=== PATIENT | female | born 1975 | race Two or more races ===

== ENCOUNTER → 2016-09-25 | Outpatient (CLI) | payer OTHER, BC ==
--- NOTE | 2016-09-25 17:10 | REP ---
Clinical: Cough and left chest pain . Comparison: 10/04/2015 . Technique: PA and lateral. Findings: The mediastinum and cardiac silhouette are normal. The lung yusuf are clear and without acute consolidation, effusion, or pneumothorax. The skeletal structures are intact and normal. Impression: 1. No acute cardiopulmonary process. Signed by Gil Gonzalez MD 09/25/2016 05:01 P
--- NOTE | 2016-09-25 17:12 | REP ---
Clinical: Left rib pain Technique: Multiple views of the right and left hemithoraces. Findings: Frontal view of the chest demonstrates no acute cardiopulmonary process. Multiple views of the right and left hemithoraces demonstrates no obvious acute rib fracture or pathology. Impression: Normal bilateral rib series Signed by Gil Gonzalez MD 09/25/2016 05:03 P
== END ==
LOC: M LRY 16:24
PROVIDERS: ATTEND Nurse Practitioner Family
DX: R05 Cough (principal); R07.81 Pleurodynia

== ENCOUNTER → 2016-12-26 | Outpatient (REF) | payer OTHER, BC | LOC: M SFHCLERA 10:14 | PROVIDERS: ATTEND Nurse Practitioner Family | DX: R11.11 Vomiting without nausea (principal) ==

== ENCOUNTER → 2017-12-10 | Outpatient (REF) | payer OTHER, BC | LOC: M SFHCLERA 12:01 | DX: J02.9 Acute pharyngitis, unspecified (principal) ==

== ENCOUNTER → 2018-02-18 | Outpatient (REF) | payer OTHER, BC | LOC: M SFHCLERA 13:28 | DX: J02.9 Acute pharyngitis, unspecified (principal) ==

== ENCOUNTER → 2018-11-14 | Outpatient (CLI) | payer BC ==
--- NOTE | 2018-11-14 12:19 | REP ---
Chest two views HISTORY: Rhonchi Comparison: 09/25/2016 The lungs are hyperinflated. Minimal peribronchial cuffing is present. The heart is normal in size. The pulmonary vasculature is normal in appearance. The bony structure is intact. IMPRESSION: There is minimal peribronchial cuffing consistent with asthma or bronchitis. Electronically Signed by Jayce Gutierrez MD 11/14/2018 12:10 P
== END ==
LOC: M LRY 11:42
PROVIDERS: ATTEND Nurse Practitioner Family
DX: R09.89 Other specified symptoms and signs involving the circulatory and respiratory systems (principal)

== ENCOUNTER → 2020-04-22 | Outpatient (REF) | payer BC ==
[2020-04-23 15:41] LABS: CREATININE, URINE 74.9 MG/DL; MALB URINE SIEMENS 10.3 MG/L; MAU/CREAT RATIO 13.7 MCG/MG (0.0-30.0)
== END ==
LOC: M LAB REF 11:51
PROVIDERS: ATTEND Nurse Practitioner Family
DX: E10.65 Type 1 diabetes mellitus with hyperglycemia (principal)

== ENCOUNTER → 2021-05-25 | Outpatient (REF) | payer BC ==
[2021-05-25 14:13] LABS: CREATININE, URINE 28.7 MG/DL; MALB URINE SIEMENS 10.5 MG/L; MAU/CREAT RATIO 36.5 MCG/MG (0.0-30.0)
== END ==
LOC: M LAB REF 12:57
PROVIDERS: ATTEND Nurse Practitioner Family
DX: E10.65 Type 1 diabetes mellitus with hyperglycemia (principal)

== ENCOUNTER → 2022-06-21 | Outpatient (REF) | payer OTHER, BC ==
[~2022-06-21] MED LIST: ADME100I; ALBU8.5H; ARNU1INH; ELIQ5TAB; ERGO500029; FARX1TAB3; FERR325T3; LEVO100T5; METF10004; METR-369; OMEP-173; SERT50TA29; STEG15TA; TRAZ-189; TRUL0.5I
[2022-06-22 18:18] LABS: MALB URINE SIEMENS < 5.0 MG/L; MAU/CREAT RATIO 18.5 MCG/MG (0.0-30.0)
== END ==
LOC: M LAB REF 16:58
PROVIDERS: ATTEND Nurse Practitioner Family
DX: E10.65 Type 1 diabetes mellitus with hyperglycemia (principal)

== ENCOUNTER → 2022-08-31 | Outpatient (CLI) | payer OTHER ==
[~2022-08-31] MED LIST changes: -ADME100I; +ADME100I SC; -ALBU8.5H; +ALBU8.5H INH; +AZEL1SPR3; +B-12100010 PO; +BASA100I SC; +BUPR150T12 PO; +ELIQ2.5T PO; -ERGO500029; +ERGO500029 PO; -FERR325T3; +FERR325T3 PO; -LEVO100T5; +LEVO100T5 PO; -METF10004; +METF10004 PO; +OMEP40CA5 PO; +SENO8.6T5 PO; -SERT50TA29; +SERT50TA29 PO; +SIMV40TA20 PO; +SUCR1TAB56 PO; -TRAZ-189; +TRAZ-189 PO; +TREL1AER INH; -TRUL0.5I; +TRUL0.5I SC; +VITA100062 PO
== END ==
LOC: M RAD 08:07
PROVIDERS: ATTEND Internal Medicine Gastroenterology
DX: R11.0 Nausea (principal)

== ENCOUNTER → 2022-08-31 | Outpatient (CLI) | payer BC, OTHER | LOC: M LABSMTC 09:25 | PROVIDERS: ATTEND Anesthesiology | DX: Z01.812 Encounter for preprocedural laboratory examination (principal); Z11.52 Encounter for screening for COVID-19 ==

== ENCOUNTER 2022-09-05 06:35 | Day surgery (SDC) | payer OTHER ==
[~2022-09-05] VITALS: Ht 165.1 cm; Wt 66.4 kg
[~2022-09-05 06:35] MED LIST changes: +NS 1,000 ML IV ONE
[2022-09-05 08:32] VITALS: BP 133/88
== END 2022-09-05 08:33 | disposition home or self-care (01) ==
LOC: M OPP 06:35
PROVIDERS: ATTEND Internal Medicine Gastroenterology
DX: K64.8 Other hemorrhoids (principal); K58.1 Irritable bowel syndrome with constipation; K29.70 Gastritis, unspecified, without bleeding; K44.9 Diaphragmatic hernia without obstruction or gangrene; K31.89 Other diseases of stomach and duodenum; K31.A12 Gastric intestinal metaplasia without dysplasia, involving the body (corpus); Z79.02 Long term (current) use of antithrombotics/antiplatelets; Z79.4 Long term (current) use of insulin; Z79.51 Long term (current) use of inhaled steroids; Z79.890 Hormone replacement therapy; Z79.899 Other long term (current) drug therapy; E03.9 Hypothyroidism, unspecified; E10.9 Type 1 diabetes mellitus without complications; J45.909 Unspecified asthma, uncomplicated; F17.200 Nicotine dependence, unspecified, uncomplicated

== ENCOUNTER → 2022-09-21 | Outpatient (CLI) | payer OTHER ==
[~2022-09-21] MED LIST changes: -NS 1,000 ML IV ONE
== END ==
LOC: M PLAIMG 06:42
PROVIDERS: ATTEND Internal Medicine Gastroenterology
DX: R93.2 Abnormal findings on diagnostic imaging of liver and biliary tract (principal)

== ENCOUNTER → 2022-10-05 | Outpatient (CLI) | payer OTHER | LOC: M RAD 07:33 | PROVIDERS: ATTEND Internal Medicine Gastroenterology | DX: K82.8 Other specified diseases of gallbladder (principal); R11.0 Nausea | CPT/HCPCS: 78227; A9537 ==

== ENCOUNTER → 2023-06-21 | Outpatient (CLI) | payer OTHER ==
[~2023-06-21] MED LIST changes: +CLOT1CRE71; +FARX1TAB5; +METF-838
== END ==
LOC: M SLEEP HO 10:28
PROVIDERS: ATTEND Internal Medicine
DX: G47.33 Obstructive sleep apnea (adult) (pediatric) (principal); R53.83 Other fatigue

== ENCOUNTER → 2024-04-18 | Outpatient (REF) | payer OTHER ==
[~2024-04-18] MED LIST changes: +XARE10TA PO
[2024-04-18 16:14] LABS: CREATININE, URINE 10.6 MG/DL; MALB URINE SIEMENS < 3.0 MG/L; MAU/CREAT RATIO 28.3 MCG/MG (0.0-30.0)
== END ==
LOC: M LAB REF 15:04
PROVIDERS: ATTEND Nurse Practitioner Family
DX: E10.65 Type 1 diabetes mellitus with hyperglycemia (principal)

== ENCOUNTER → 2024-07-08 | Outpatient (REF) | payer OTHER ==
[2024-07-08 18:27] LABS: BASO # 0.1 10^3/uL (0.0-0.2); BASO % 0.6 % (0.0-1.0); EOS # 0.2 10^3/uL (0.0-0.5); EOS % 2.1 % (0.0-3.0); HEMATOCRIT 49.1 % (36.0-47.0); HEMOGLOBIN 15.8 g/dl (12.0-15.5); LYMPH # 1.5 10^3/uL (1.5-5.0); LYMPH % 15.1 % (24.0-44.0); MEAN CORPUSCULAR HEMOGLOBIN 29.6 pg (27.0-33.0); MEAN CORPUSCULAR HGB CONC 32.2 g/dl (32.0-36.5); MEAN CORPUSCULAR VOLUME 91.9 fl (80.0-96.0); MONO # 0.5 10^3/uL (0.0-0.8); MONO % 5.1 % (2.0-8.0); NEUTROPHILS # 7.8 10^3/uL (1.5-8.5); NEUTROPHILS % 76.5 % (36.0-66.0); PLATELET COUNT, AUTOMATED 453 10^3/uL (150-450); RED BLOOD COUNT 5.34 10^6/uL (4.00-5.40); WHITE BLOOD COUNT 10.2 10^3/uL (4.0-10.0)
[2024-07-08 18:58] LABS: MAGNESIUM LEVEL 1.8 MG/DL (1.8-2.4); PHOSPHORUS LEVEL 3.4 MG/DL (2.5-4.9)
[2024-07-08 19:00] LABS: FOLATE 20.23 NG/ML (>5.4)
== END ==
LOC: M SFHCRHEU 12:20
PROVIDERS: ATTEND Internal Medicine
DX: R53.83 Other fatigue (principal); R74.8 Abnormal levels of other serum enzymes; D72.810 Lymphocytopenia

== ENCOUNTER → 2025-07-02 | Outpatient (REF) | payer OTHER ==
[~2025-07-02] MED LIST changes: +SENN-225 PO; -SENO8.6T5 PO
[2025-07-02 15:34] LABS: TOTAL 25(OH) VITAMIN D 60.8 NG/ML (20.0-100.0); VITAMIN B12 LEVEL 1065.0 PG/ML (211-911)
== END ==
LOC: M SFHCRHEU 11:36
PROVIDERS: ATTEND Internal Medicine
DX: R53.83 Other fatigue (principal); R74.8 Abnormal levels of other serum enzymes